=== PATIENT | female | born 1985 | race Caucasian/White ===

== ENCOUNTER 2021-08-26 12:21 | Emergency (ER) | payer BC, SELFPAY ==
[2021-08-26 12:22] VITALS: BP 161/103; PULSE 98; RESP 16; TEMP 37; O2SAT 99; BMI 23.8
--- NOTE | 2021-08-26 12:49 | W.ED.ABDPA2 ---
HPI - Abdominal Pain General: Chief Complaint: Abdominal Pain Stated Complaint: abd pain Time Seen by Provider: 08/26/21 12:35 Source: patient Mode of arrival: ambulatory Limitations: no limitations History of Present Illness: 35-year-old female presents emergency room complaining of abdominal pain. Symptoms began last night. She denies any fever sweats chills vomiting or diarrhea. She is about to begin her menstrual period. She previously has had an appendectomy no other abdominal surgeries. MD elicited complaint: abdominal pain Pertinent past history: other (Previous appendectomy) Onset (ago): hour(s) Pain Consistency: constant Location: RLQ Severity: moderate Quality: cramping Radiation: none Migration to: no migration Exacerbating factors: nothing Relieving factors: nothing Associated Symptoms: Reports GI cramping and poor appetite; Denies anorexia, belching, bloating, change in bowel habits, change in stool character, chills, coffee ground emesis, constipation, diarrhea, dyspepsia, dysuria, excessive flatus, fever(s), heartburn, hematochezia, hematuria, hematemesis, fecal incontinence, loose stools, melena, nausea, syncope and vomiting Review of Systems Const: Denies: fever(s), chills, body aches, fatigue or malaise ENMT: Denies: throat pain, ear or mastoid pain, nasal discharge or nasal congestion Card: Denies: syncope Resp: Denies: dyspnea, productive cough or non-productive cough GI: Reports: GI cramping; Denies: nausea, vomiting, hematemesis, coffee ground emesis, heartburn, diarrhea, constipation, bloating, belching, excessive flatus, fecal incontinence, change in bowel habits, change in stool character, hematochezia or melena : Denies: flank pain, difficulty voiding, dysuria, urinary frequency or hematuria Skin/Breast: Denies: rash or pruritus PFSH ED PFSH: Medical History (Updated 08/26/21 @ 15:26 by Yamil Low DO) History of sterilization procedure E sure Surgical History (Updated 08/26/21 @ 12:55 by Yamil Low DO) History of appendectomy Social History (Updated 08/26/21 @ 12:55 by Yamil Low DO) Smoking and tobacco status: never smoked Alcohol intake: never Physical Exam Const: GENERAL APPEARANCE: cooperative and comfortable ORIENTATION/CONSCIOUSNESS: Yes awake, Yes oriented to person, Yes oriented to place and Yes oriented to time HENMT: COMMON NORMALS: normocephalic, atraumatic and hearing grossly normal bilaterally HEAD & SCALP: normocephalic and atraumatic Neck/C-Spine: COMMON NORMALS: no JVD Lymph: LYMPHATIC: no lymphadenopathy noted and no lymphedema noted Resp: COMMON NORMALS: normal respiratory effort, No retractions, No use of accessory muscles and clear to auscultation bilaterally AUSCULTATION: clear to auscultation bilaterally Cardio: COMMON NORMALS: no JVD, regular rate, regular rhythm and No murmurs present (Cardio) RATE: regular rate RHYTHM: regular rhythm GI: COMMON NORMALS: No hepatosplenomegaly present AUSCULTATION: Yes normoactive bowel sounds PALPATION: Yes Tenderness to palpation present (GI) Details: RLQ, No Guarding due to palpation present (GI) and Yes No hepatosplenomegaly present Extremity: COMMON NORMALS: normal to inspection, capillary refill normal, no clubbing, cyanosis or edema, no calf tenderness and no pedal edema Neuro: SENSORIUM/ORIENTATION: Yes oriented to person, Yes oriented to place and Yes oriented to time Skin: COMMON NORMALS: no rashes or lesions noted GENERAL SKIN EXAM: no rashes or lesions noted Course Vital Signs: Vital signs: Vital Signs Temperature 98.6 F 08/26/21 12:22 Pulse Rate 65 08/26/21 13:48 Respiratory Rate 14 08/26/21 13:48 Blood Pressure 153/93 08/26/21 13:48 Pulse Oximetry 96 08/26/21 13:48 MDM - Abdominal Pain Medical Decision Making Beta-hCG negative. There is some fluid in the pelvis on ultrasound consistent with a hemorrhagic cyst treat with anti-inflammatories. Patient has previously had appendectomy. Medical Records I reviewed the patient's medical records. Lab Data I reviewed the patient's lab results. : 08/26/21 12:47 08/26/21 12:47 Labs/Radiology: Radiology Impressions Transvaginal US 08/26/21 12:57 IMPRESSION: 1. No intrauterine gestation identified. By history patient has Essure implants. Correlate with negative hCG. 2. Complex free fluid in the pelvis extending into the adnexa. Slightly greater amount of fluid on the RIGHT. If there is no history of this is probably a hemorrhagic cyst with some adjacent bleeding. 3. Mildly complex cystic mass associated with the LEFT ovary measures 2.3 x 1.6 x 1.6 cm. Likely a corpus luteal cyst. Laboratory Results WBC 7.7 10^3/uL (4.0-10.0) 08/26/21 12:47 RBC 4.55 10^6/uL (4.1-5.3) 08/26/21 12:47 Hgb 15.2 g/dL (11.5-15.3) 08/26/21 12:47 Hct 42.8 % (37.0-47.0) 08/26/21 12:47 MCV 94.1 fl (81-99) 08/26/21 12:47 MCH 33.4 pg (28.0-34.0) 08/26/21 12:47 MCHC 35.5 g/dL (30.0-36.0) 08/26/21 12:47 RDW 12.3 % (12.1-15.1) 08/26/21 12:47 Plt Count 295 10^3/cmm (130-400) 08/26/21 12:47 MPV 10.5 fL (7.4-10.4) H 08/26/21 12:47 Neut % (Auto) 66.4 % 08/26/21 12:47 Lymph % (Auto) 25.9 % 08/26/21 12:47 [place] % (Auto) 5.7 % 08/26/21 12:47 Eos % (Auto) 1.3 % 08/26/21 12:47 Baso % (Auto) 0.4 % 08/26/21 12:47 Neut # (Auto) 5.13 10^3/uL (1.8-7.7) 08/26/21 12:47 Lymph # (Auto) 2.0 10^3/uL (0.8-4.8) 08/26/21 12:47 [place] # (Auto) 0.4 10^3/uL (0.2-0.9) 08/26/21 12:47 Eos # (Auto) 0.1 10^3/uL (0.0-0.8) 08/26/21 12:47 Baso # (Auto) 0.0 10^3/uL (0.0-0.1) 08/26/21 12:47 Nucleated RBC % (auto) 0 % 08/26/21 12:47 Nucleated RBCs # 0.0 /100WBC 08/26/21 12:47 Sodium 136 mmol/L (136-145) 08/26/21 12:47 Potassium 3.1 mmol/L (3.5-5.1) L 08/26/21 12:47 Chloride 100 mmol/L (98-107) 08/26/21 12:47 Carbon Dioxide 23 mmol/L (22-29) 08/26/21 12:47 Anion Gap 16.1 (5-19) 08/26/21 12:47 BUN 4 mg/dL (6-20) L 08/26/21 12:47 Creatinine 0.6 mg/dL (0.5-0.9) 08/26/21 12:47 GFR Calculation 114.4 mL/min (90-130) 08/26/21 12:47 Glucose 121 mg/dL (65-115) H 08/26/21 12:47 Calculated Osmolality 280 mOsm/kg (285-295) L 08/26/21 12:47 Calcium 9.0 mg/dL (8.5-10.5) 08/26/21 12:47 Total Bilirubin 0.7 mg/dL (0.15-1.2) 08/26/21 12:47 AST 19 U/L (0-32) 08/26/21 12:47 ALT 16 U/L (0-33) 08/26/21 12:47 Alkaline Phosphatase 115 IU/L (35-105) H 08/26/21 12:47 Total Protein 7.7 g/dL (6.6-8.7) 08/26/21 12:47 Albumin 4.7 g/dL (3.5-5.2) 08/26/21 12:47 Globulin 3.0 g/dL (1.3-4.6) 08/26/21 12:47 HCG, Qual Negative (Negative) 08/26/21 12:47 Urine Color Yellow (Yellow) 08/26/21 12:47 Urine Appearance Clear (CLEAR) 08/26/21 12:47 Urine pH 6 (5-7) 08/26/21 12:47 Ur Specific [place] 1.000 (1.005-1.030) L 08/26/21 12:47 Urine Protein Neg (Negative) 08/26/21 12:47 Urine Glucose (UA) Norm (Normal) 08/26/21 12:47 Urine Ketones Negative (Negative) 08/26/21 12:47 Urine Blood Neg (Negative) 08/26/21 12:47 Urine Nitrate Negative (Negative) 08/26/21 12:47 Urine Bilirubin Neg (Negative) 08/26/21 12:47 Urine Urobilinogen Norm mg/dL (Negative) 08/26/21 12:47 Ur Leukocyte Esterase Negative (Negative) 08/26/21 12:47 Discharge Plan Discharge Patient Disposition: Home Clinical Impression: Hemorrhagic cyst of right ovary Prescriptions: New diclofenac sodium 75 mg tablet,delayed release (DR/EC) 75 mg PO Q12H PRN (Reason: pain) Qty: 20 0RF No Action lisinopril 10 mg tablet 10 mg PO DAILY 0RF hydrochlorothiazide 25 mg tablet 25 mg PO DAILY PRN (Reason: Blood Pressure) 0RF Discharge Orders: Discharge ED (Routine); Ordered 08/26/21 Ordered By: Yamil Low Discharge Diet: Usual diet Discharge Activity: Increase activity as tolerated Patient Instructions: Opioid Safety Activity Restrictions/Additional Instructions: Diclofenac as needed follow-up with primary care doctor. Coding Level of Care Code ED Workers Compensation Defense Attorney for Michelle Fwd Exam Comprehensive
[2021-08-26 12:54] LABS: Basophils % 0.4 %; Eosinophils # 0.1 10^3/uL (0.0-0.8); Eosinophils % 1.3 %; Hematocrit 42.8 % (37.0-47.0); Hemoglobin 15.2 g/dL (11.5-15.3); Lymphocytes % 25.9 %; Mean Corpuscular HGB Conc 35.5 g/dL (30.0-36.0); Mean Corpuscular Hemoglobin 33.4 pg (28.0-34.0); Mean Corpuscular Volume 94.1 fl (81-99); Mean Platelet Volume 10.5 fL (7.4-10.4); Monocytes # 0.4 10^3/uL (0.2-0.9); Monocytes % 5.7 %; Neutrophils # 5.13 10^3/uL (1.8-7.7); Neutrophils % 66.4 %; Nucleated Red Blood Cells % 0 %; Platelet Count 295 10^3/cmm (130-400); Red Blood Count 4.55 10^6/uL (4.1-5.3); Red Cell Distribution Width 12.3 % (12.1-15.1); White Blood Count 7.7 10^3/uL (4.0-10.0)
--- NOTE | 2021-08-26 12:57 | US_ITS ---
WS: [id number] TRANSVAGINAL PELVIC ULTRASOUND HISTORY: Right-sided pelvic pain history appendectomy COMPARISON: 09/11/2018 Uterus: 7.9 cm x 6.1 cm x 4.3 cm. Normal size anteverted uterus. No fibroid or mass. Endometrium: 1.0 cm. Normal endometrium. Right ovary: 2.8 cm x 1.8 cm x 1.9 cm. Normal size RIGHT ovary with small peripheral follicles. Tabitha l vascularity to the ovary. Free fluid in the cul-de-sac is more than physiologic. Mildly complex flu id. Left ovary: 1.9 cm x 3.0 cm x 2.4 cm. Normal size ovary. There is a thick walled cystic structure in the LEFT ovary measuring 2.3 x 1.6 x 1.6 cm. There is adjacent free fluid. Small amount of free fluid in the cul-de-sac. US/US transvaginal [id number] IMPRESSION: 1. No intrauterine gestation identified. By history patient has Essure implant s. Correlate with negative hCG. 2. Complex free fluid in the pelvis extending into the adnexa. Slightly greate r amount of fluid on the RIGHT. If there is no history of this is pro bably a hemorrhagic cyst with some adjacent bleeding. 3. Mildly complex cystic mass associated with the LEFT ovary measures 2.3 x 1. 6 x 1.6 cm. Likely a corpus luteal cyst.
[2021-08-26] MEDS: ondansetron 2 mg/ML SDV 2 mL 4 MG IVP (13:05)
[2021-08-26 13:06] LABS: Add Urine Microscopic? NO; Charge for UA Resulting for Rev
[2021-08-26 13:10] VITALS: RESP 16
[2021-08-26] MEDS: morphine 4 mg/mL SDV 1 mL IVP (13:10)
[2021-08-26 13:19] LABS: Alanine Aminotransferase 16 U/L (0-33); Albumin Level 4.7 g/dL (3.5-5.2); Alkaline Phosphatase 115 IU/L (35-105); Anion Gap 16.1 (5-19); Aspartate Amino Transferase 19 U/L (0-32); Blood Urea Nitrogen 4 mg/dL (6-20); Carbon Dioxide 23 mmol/L (22-29); Chloride 100 mmol/L (98-107); Glomerular Filtration Rate 114.4 mL/min (90-130); Glucose 121 mg/dL (65-115); Osmolality Calculated 280 mOsm/kg (285-295); Potassium 3.1 mmol/L (3.5-5.1); Sodium 136 mmol/L (136-145); Total Bilirubin 0.7 mg/dL (0.15-1.2); Total Protein 7.7 g/dL (6.6-8.7)
[2021-08-26 13:20] LABS: Bilirubin Urine Neg (Negative); Blood Urine Neg (Negative); Glucose Urine UA Norm (Normal); Ketones Urine Negative (Negative); Leukocyte Esterase Urine Negative (Negative); Nitrate Urine Negative (Negative); Protein Urine Neg (Negative); Urine Appearance Clear (CLEAR); Urine Color Yellow (Yellow); Urobilinogen Urine Norm (Negative); pH Urine 6 (5-7)
[2021-08-26 13:21] LABS: HCG, Serum Qual Negative (Negative)
[2021-08-26 13:48] VITALS: BP 153/93; PULSE 65; RESP 14; O2SAT 96
[2021-08-26 15:50] VITALS: BP 117/70; PULSE 76; RESP 15; O2SAT 95
== END 2021-08-26 15:48 | disposition home or self-care (01) ==
PROVIDERS: Emergency Provider Family Medicine
DX: N83.201 Unspecified ovarian cyst, right side (principal)
CPT/HCPCS: 76830; 80053; 81003; 84703; 85025; 96374; 96375; 99285; J2270; J2405